=== PATIENT | male | born 1975 | race Two or more races ===

== ENCOUNTER 2020-05-01 20:44 | Emergency (ER) | payer OTHER ==
[~2020-05-01] VITALS: Ht 175.3 cm; Wt 88.0 kg
[2020-05-01] MEDS ORDERED: ASPIRIN 81 MG TABLET CHEW ONE (21:19)
[2020-05-01] MEDS ORDERED: ASPIRIN 81 MG TABLET CHEW PO ONE (21:30)
[2020-05-01] MEDS ORDERED: SODIUM CHLORIDE FLUSH 10ML SYR IVF ONE (21:30)
--- NOTE | 2020-05-01 21:31 | NUR ---
Patient presents to ER c/o palpitations and nausea. Patient states it started approx 3-4 hours ago. He has never experienced this before. Denies vomiting or SOB. Patient is in NAD. Respirations even and unlabored.
[2020-05-01 21:42] LABS: BASOPHILS % (AUTO) 0 % (0-1); EOSINOPHILS % (AUTO) 1 % (1-7); LYMPHOCYTES % (AUTO) 19 % (22-44); MEAN CORPUSCULAR HEMOGLOBIN 32.4 pg (27.5-34.5); MEAN CORPUSCULAR HGB CONC 35.4 g/dL (33.2-36.2); MEAN PLATELET VOLUME 8.3 fL (7.4-10.4); MONOCYTES % (AUTO) 6 % (2-9); NEUTROPHILS % (AUTO) 75 % (42-75); PLATELET COUNT 227 x10^3/uL (130-400); RED BLOOD COUNT 4.33 x10^6/uL (4.38-5.82); RED CELL DISTRIBUTION WIDTH 11.9 % (9.4-14.8)
[2020-05-01 21:48] LABS: ALANINE AMINOTRANSFERASE 28 U/L (12-78); ALBUMIN 4.1 g/dL (3.4-5.0); ANION GAP 9 mmol/L (5-15); CALCIUM 9.1 mg/dL (8.5-10.1); CHLORIDE 90 mmol/L (98-107); CREATININE 0.86 mg/dL (0.7-1.3); MD NO
[2020-05-01 21:53] LABS: ALKALINE PHOSPHATASE 66 U/L (45-117); BILIRUBIN,TOTAL 0.7 mg/dL (0.2-1.0); TOTAL PROTEIN 8.1 g/dL (6.4-8.2); TROPONIN I < 0.015 ng/mL (0.000-0.045)
[2020-05-01 22:53] VITALS: BP 143/78
[2020-05-01] MEDS ORDERED: SODIUM CHLORIDE 0.9% 1,000ML IVBOLUS ONE (23:30)
--- NOTE | 2020-05-02 00:18 | NUR ---
Discharge instructions given. All questions and concerns addressed. Patient ambulatory with a steady gait. Belongings with patient.
== END 2020-05-02 00:22 | disposition home or self-care (01) ==
LOC: ED 21:21
DX: R07.89 Other chest pain (principal); R00.2 Palpitations; R11.0 Nausea; I10 Essential (primary) hypertension; E87.1 Hypo-osmolality and hyponatremia
CPT/HCPCS: 36415; 71045; 80053; 84484; 85025; 93005; 99285; J7030